=== PATIENT | female | born 1995 | race Caucasian/White ===

== ENCOUNTER 2020-11-15 15:54 | Inpatient (IN) | payer OTHER ==
[~2020-11-15] VITALS: Ht 170.2 cm; Wt 83.0 kg
[2020-11-15] MEDS ORDERED: PRENATAL TABLE1 EAC1 PO (17:54)
== END 2020-11-18 12:06 | disposition home or self-care (01) | DRG 807 ==
LOC: OBS/DEL 15:54 → LDR 17:28 → OBS/DEL 17:28 → LDR 19:13 → OB/GYN 11-16 16:41
PROVIDERS: ADMIT Obstetrics & Gynecology; ATTEND Obstetrics & Gynecology
PROC: 3E0P7VZ Introduction of Hormone into Female Reproductive, Via Natural or Artificial Opening (ICD-10-PCS; 2020-11-15)
PROC: 4A1HXFZ Monitoring of Products of Conception, Cardiac Rhythm, External Approach (ICD-10-PCS; 2020-11-15)
PROC: 10E0XZZ Delivery of Products of Conception, External Approach (ICD-10-PCS; principal; 2020-11-16)
PROC: 3E033VJ Introduction of Other Hormone into Peripheral Vein, Percutaneous Approach (ICD-10-PCS; 2020-11-16)
DX: O42.02 Full-term premature rupture of membranes, onset of labor within 24 hours of rupture (principal); Z37.0 Single live birth; Z3A.38 38 weeks gestation of pregnancy; Z20.822 Contact with and (suspected) exposure to COVID-19

== ENCOUNTER 2022-06-06 13:09 | Inpatient (IN) | payer OTHER ==
[~2022-06-06] VITALS: Ht 172.7 cm; Wt 85.7 kg
[~2022-06-06 13:09] MED LIST: PRENATAL TABLE1 EAC1 PO
== END 2022-06-08 19:26 | disposition home or self-care (01) | DRG 807 ==
LOC: LDR 13:09 → OB/GYN 06-07 10:31
PROVIDERS: ADMIT Obstetrics & Gynecology; ATTEND Obstetrics & Gynecology
PROC: 10E0XZZ Delivery of Products of Conception, External Approach (ICD-10-PCS; principal; 2022-06-06)
PROC: 4A1HXCZ Monitoring of Products of Conception, Cardiac Rate, External Approach (ICD-10-PCS; 2022-06-06)
DX: O80 Encounter for full-term uncomplicated delivery (principal); Z37.0 Single live birth; Z3A.39 39 weeks gestation of pregnancy; Z20.822 Contact with and (suspected) exposure to COVID-19

== ENCOUNTER 2024-01-18 14:57 | Emergency (ER) | payer OTHER ==
[~2024-01-18] VITALS: Ht 170.2 cm; Wt 81.6 kg
[2024-01-18] MEDS ORDERED: FOLIC ACID0.8 M1 (15:17)
[2024-01-18] MEDS ORDERED: CEFTRIAXONE SODIUM 1,000 MG VIAL IM ONE (17:30)
[2024-01-18] MEDS ORDERED: DEXAMETHASONE SODIUM PHOSPHATE 4 MG/ML VIAL IM ONE (17:45)
[2024-01-18] MEDS ORDERED: ACETAMINOPHEN 500 MG GEL..CAP PO ONE (17:45)
[2024-01-18 19:07] LABS: HEMATOCRIT 36.4 % (36.0-45.00); HEMOGLOBIN 12.6 g/dL (12.0-15.00); MEAN CELL VOLUME 91.9 fL (80.00-100.00); MEAN CORPUSCULAR HEMOGLOBIN 31.8 pg (27.00-32.0); MEAN CORPUSCULAR HGB CONC 34.6 g/dl (32.0-36.0); PLATELET COUNT 339 K/uL (150-450); RED BLOOD COUNT 3.96 M/uL (4.00-6.00); RED CELL DISTRIBUTION WIDTH 12.9 % (11.5-14.5)
== END 2024-01-18 21:49 | disposition home or self-care (01) ==
LOC: ER 14:57
PROVIDERS: Emergency Medicine
DX: K08.89 Other specified disorders of teeth and supporting structures (principal)

== ENCOUNTER 2024-08-19 05:18 | Inpatient (IN) | payer OTHER ==
[~2024-08-19] VITALS: Ht 162.6 cm; Wt 93.4 kg
[2024-08-19] VITALS (11 sets, daily range): BP systolic 103–125; BP diastolic 52–75; O2SAT 99
[~2024-08-19 05:18] MED LIST changes: +FOLIC ACID0.8 M1
[2024-08-19 07:29] LABS: HEMATOCRIT 33.3 % (36.0-45.00); HEMOGLOBIN 11.5 g/dL (12.0-15.00); MEAN CORPUSCULAR HEMOGLOBIN 33.2 pg (27.00-32.0); MEAN CORPUSCULAR HGB CONC 34.6 g/dl (32.0-36.0); PLATELET COUNT 246 K/uL (150-450); RED BLOOD COUNT 3.47 M/uL (4.00-6.00); RED CELL DISTRIBUTION WIDTH 13.2 % (11.5-14.5)
[2024-08-19 07:52] LABS: PH,URINE 6.5 (5.0-8.0); URINE APPEARANCE Cloudy; URINE BILIRRUBIN Negative (NEGATIVE); URINE BLOOD Large; URINE COLOR Yellow; URINE GLUCOSE Negative (NEGATIVE); URINE KETONE Negative (NEGATIVE); URINE LEUKOCYTE Moderate; URINE NITRATE Negative; URINE PROTEIN Trace (NEGATIVE); URINE UROBILINOGEN 0.2 E.U./dl
[2024-08-19 07:56] LABS: URINE BACTERIA 2894.1 uL (0.0-1933); URINE EPITHELIAL CELLS 123.3 uL (0.0-38.8); URINE WBC 190.7 uL (0.0-23.2)
[2024-08-19 07:58] LABS: INR 0.98; PARTIAL THROMBOPLASTIN TIME 27.7 SECONDS (22.0-34.0); PROTHROMBIN TIME 10.7 SECONDS (9.0-11.5)
[2024-08-19 08:05] LABS: URINE CAST 0.61 uL (0.0-1.40)
[2024-08-19] MEDS ORDERED: OXYTOCIN 20 UNITS/500ML RL PIGGYBAG IV SCH (12:45)
[2024-08-19] MEDS ORDERED: MEPERIDINE HCL/PF 50 MG/ML VIAL IV ONE (17:30)
[2024-08-19] MEDS ORDERED: PROMETHAZINE HCL 25 MG/ML AMPUL IV ONE (17:30)
[2024-08-19] MEDS ORDERED: ACETAMINOPHEN 500 MG GEL..CAP PO PRN (22:30)
[2024-08-19] MEDS ORDERED: ERYTHROMYCIN BASE OPHT 1GM EACH TUBE OP ONE (22:30)
[2024-08-19] MEDS ORDERED: OXYTOCIN 1,000 ML IV SCH ×2 (22:30)
[2024-08-19] MEDS ORDERED: CHLORHEXIDINE GLUCONATE 120 ML BOTTLE TOP ONE (22:30)
[2024-08-20 01:34] LABS: HEMOGLOBIN 11.5 g/dL (12.0-15.00); MEAN CELL VOLUME 95.8 fL (80.00-100.00); MEAN CORPUSCULAR HEMOGLOBIN 33.3 pg (27.00-32.0); MEAN CORPUSCULAR HGB CONC 34.8 g/dl (32.0-36.0); PLATELET COUNT 253 K/uL (150-450); RED BLOOD COUNT 3.45 M/uL (4.00-6.00); RED CELL DISTRIBUTION WIDTH 13.6 % (11.5-14.5)
[2024-08-20 02:00] VITALS: BP 112/71
[2024-08-20 08:30] VITALS: BP 103/70
[2024-08-20] MEDS ORDERED: PNV,CALCIUM 72/IRON/FOLIC ACID 1 TAB TABLET PO SCH (09:00)
[2024-08-20 16:00] VITALS: BP 109/66
[2024-08-21 01:06] VITALS: BP 113/78
[2024-08-21 08:00] VITALS: BP 126/55
== END 2024-08-21 16:49 | disposition home or self-care (01) | DRG 807 ==
LOC: OB/GYN 05:18 → LDR 05:18 → OB/GYN 22:44
PROVIDERS: ADMIT Obstetrics & Gynecology; ATTEND Obstetrics & Gynecology
PROC: 10E0XZZ Delivery of Products of Conception, External Approach (ICD-10-PCS; principal; 2024-08-19)
PROC: 4A1HXCZ Monitoring of Products of Conception, Cardiac Rate, External Approach (ICD-10-PCS; 2024-08-19)
DX: O80 Encounter for full-term uncomplicated delivery (principal); Z37.0 Single live birth; Z3A.39 39 weeks gestation of pregnancy; Z20.822 Contact with and (suspected) exposure to COVID-19